=== PATIENT | female | born 1950 | race Caucasian/White ===

== ENCOUNTER → 2017-03-25 | Outpatient (CLI) | payer OTHER | LOC: RAD 10:42 | DX: R91.8 Other nonspecific abnormal finding of lung field (principal) ==

== ENCOUNTER → 2021-01-01 | Outpatient (CLI) | payer OTHER, BC | LOC: CAT 10:22 | PROVIDERS: ATTEND Internal Medicine | DX: R91.8 Other nonspecific abnormal finding of lung field (principal); I70.0 Atherosclerosis of aorta; I25.10 Atherosclerotic heart disease of native coronary artery without angina pectoris; J98.4 Other disorders of lung ==

== ENCOUNTER → 2021-07-01 | Outpatient (CLI) | payer OTHER, BC | LOC: CAT 11:19 | PROVIDERS: ATTEND Internal Medicine | DX: J98.11 Atelectasis (principal); M41.84 Other forms of scoliosis, thoracic region; M25.78 Osteophyte, vertebrae; R91.8 Other nonspecific abnormal finding of lung field ==